=== PATIENT | male | born 1945 | race Caucasian/White ===

== ENCOUNTER 2019-11-29 13:07 | Emergency (ER) | payer OTHER ==
[~2019-11-29] VITALS: Ht 175.3 cm; Wt 35.8 kg
[2019-11-29 13:21] LABS: HEMATOCRIT 38.6 % (42.0-52.0); HEMOGLOBIN 12.9 gm/dL (14.0-18.0); MCH 32.8 pg (26.0-34.0); MCHC 33.5 g/dL (28.0-37.0); MCV 97.9 fL (80.0-100.0); PLATELET COUNT 134 thou/uL (150-400); RBC 3.94 mil/uL (4.50-6.00); RDW 14.5 % (10.5-14.5); WBC 13.4 thou/uL (4.0-11.0)
[2019-11-29 13:29] LABS: BE(vivo) 0.5 mmol/L (-2 to +3); HCO3 26.7 mmol/L (22.0-26.0); PCO2 50.1 mmHg (35.0-45.0); PO2 365.7 mmHg (80.0-100.0); pH 7.345 (7.360-7.450); sO2 99.8 % (92.0-98.0)
[2019-11-29] MEDS ORDERED: ZUPLENZ8 MG PO (13:31)
[2019-11-29] MEDS ORDERED: PERCOCET 10-321 EAC1 PO (13:31)
[2019-11-29] MEDS ORDERED: SENNA8.8 MG/5 M PO (13:32)
[2019-11-29] MEDS ORDERED: NORVASC5 M1 PO (13:33)
[2019-11-29] MEDS ORDERED: MAPAP500 MG PO (13:33)
[2019-11-29] MEDS ORDERED: AMITIZA 24 MCG24 MC1 PO (13:33)
[2019-11-29] MEDS ORDERED: LOPERAMIDE 2 MG2 M1 PO (13:34)
[2019-11-29] MEDS ORDERED: MIRALAX119 GM PO (13:34)
[2019-11-29] MEDS ORDERED: MELATONIN3 M1 PO (13:34)
[2019-11-29] MEDS ORDERED: COLACE100 MG PO (13:34)
[2019-11-29] MEDS ORDERED: MORPHINE SULFAT15 M3 PO (13:35)
[2019-11-29 13:38] LABS: ANION GAP 7 mmol/L (7-16); BUN 33 mg/dL (7-18); CALCIUM 7.6 mg/dL (8.5-10.1); CHLORIDE 100 mmol/L (98-107); CO2 29 mmol/L (21-32); CREATININE 0.3 mg/dL (0.7-1.3); GLUCOSE 115 mg/dL (74-106); POTASSIUM 3.8 mmol/L (3.5-5.1); SODIUM 136 mmol/L (136-145)
[2019-11-29 13:43] LABS: ALBUMIN 1.7 g/dL (3.4-5.0); MAGNESIUM 2.1 mg/dL (1.8-2.4); SGOT 344 U/L (15-37); SGPT 98 U/L (30-65); TOTAL BILIRUBIN 2.7 mg/dL (0.2-1.0); TOTAL PROTEIN 6.4 g/dL (6.4-8.2); TROPONIN-I <0.06 ng/mL (<0.06)
[2019-11-29 13:56] LABS: URINE BILIRUBIN NEGATIVE (Negative); URINE BLOOD NEGATIVE (Negative); URINE CLARITY CLEAR; URINE COLOR YELLOW; URINE GLUCOSE-RANDOM* NEGATIVE (Negative); URINE KETONES NEGATIVE (Negative); URINE LEUKOCYTES-REFLEX NEGATIVE (Negative); URINE NITRITE-REFLEX NEGATIVE (Negative); URINE PROTEIN (DIPSTICK) NEGATIVE (Negative); URINE UROBILINOGEN 0.2 E.U./dl (0.2-1.0)
[2019-11-29 14:03] LABS: AMP/METHAMP Negative (Negative); BARBITURATES Negative (Negative); BENZODIAZEPINES Negative (Negative); COCAINE Negative (Negative); METHADONE Negative (Negative); OPIATES POSITIVE (Negative); PCP Negative (Negative)
[2019-11-29 14:16] LABS: ABSOLUTE NEUTROPHILS 11.7 thou/uL (1.4-8.2)
[2019-11-29 14:17] LABS: PLATELET ESTIMATE NORMAL
--- NOTE | 2019-11-29 14:50 | EKG ---
[facility] [place] [address] ELECTROCARDIOGRAM REPORT Name: DEVAN SEBASTIAN Room #: PRE M.R.#: [id number] Admission: Attend Phys: Discharge: Date of : 49 Report #: [id number] THIS REPORT FOR: cc: Fritz Newamn MD ~ THIS REPORT FOR: //name// [facility] ED Test Date: 2019-11-29 Test Time: 13:25:12 Pat Name: DEVAN SEBASTIAN Department: Room: Gender: M Medical Services Manager: yudi : 1945 Requested By: Nick Montes Order Number: [id number] MD: Fritz Newman Measurements Intervals [place] Rate: 75 P: AL: QRS: -70 QRSD: 155 T: QT: 591 QTc: 661 Interpretive Statements Normal sinus rhythm Nonspecific IVCD with LAD Lead(s) I,aVL were not used for morphology analysis No previous ECG available for comparison Electronically Signed On 11-29-2019 14:50:00 CDT by Fritz Newman [email or web address] <ELECTRONICALLY SIGNED> By: Fritz Newman MD 11/29/19 1450 D: 09/1324 24 Fritz Newman MD /LU
[2019-11-29 20:21] VITALS: BP 97/64
== END 2019-11-29 20:26 | disposition short-term general hospital (02) ==
LOC: ER 13:07
PROVIDERS: Emergency Medicine
DX: R41.82 Altered mental status, unspecified (principal); C78.7 Secondary malignant neoplasm of liver and intrahepatic bile duct; C34.90 Malignant neoplasm of unspecified part of unspecified bronchus or lung; R64 Cachexia; Z79.899 Other long term (current) drug therapy; Z88.8 Allergy status to other drugs, medicaments and biological substances